=== PATIENT | female | born 1980 | race Caucasian/White ===

== ENCOUNTER 2018-07-20 05:47 | Day surgery (SDC) | payer BC ==
[2018-06-28 13:35] VITALS: BMI 28.3
[2018-06-29 10:06] LABS: #Basophils 0.1 thou/uL (0.0-0.2); #Eosinphils 0.1 thou/uL (0.0-0.7); #Lymphocytes 2.2 thou/uL (1.20-3.40); #Monocytes 0.4 thou/uL (0.11-0.59); %Eosinophils 1.9 % (0.0-10.0); %Monocytes 6.3 % (0.0-10.0); %Neutrophils 52.8 % (42.0-75.0); Hemoglobin 13.1 g/dL (12.0-16.0); Mean Corpuscular HGB CONC 34.3 g/dL (32.0-36.0); Mean Corpuscular Hemoglobin 28.3 pg (27.0-31.0); Mean Corpuscular Volume 82.4 fL (78.0-98.0); Mean Platelet Volume 6.9 fL (7.4-10.4); Platelet Count 187 thou/uL (130-400); RBC Distribution Width 11.8 % (11.5-14.5); Red Blood Cell (RBC) Count 4.61 mill/uL (4.20-5.40); White Blood Cell (WBC) Count 5.7 thou/uL (4.8-10.8)
[2018-06-29 10:57] LABS: Bilirubin Negative (Negative); Blood, Urine Negative (Negative); Clarity CLEAR (Clear); Glucose, Urine (Dipstick) Negative (Negative); Leukocyte Small (Negative); Nitrite Negative (Negative); Protein, Urine (Dipstick) Negative (Neg-Trace); Specific Gravity, Urine 1.008 (1.002-1.036); Urobilinogen 0.2 mg/dL (0.2-1.0); pH, Urine 6.5 (5.0-9.0)
[2018-06-29 11:00] LABS: Bacteria/HPF Rare-Few HPF (None Seen); Hyaline Casts/LPF 0-3 HYALINE CAST LPF (0-3 Hyaline); Pathc Cast-AUWi Flag 0.58 (0-2.49)
[~2018-07-20 05:47] MED LIST: CEFAZOLIN/Water 2 GM/20 ML SYRINGE ONE; Midazolam HCl 2 mg/2 ml Vial ONE
[2018-07-20] MEDS ORDERED: CEFAZOLIN/Water 2 GM/20 ML SYRINGE ONE (06:13)
[2018-07-20] MEDS ORDERED: Fentanyl 100 MCG/2 ML VIAL ONE (06:25)
[2018-07-20] MEDS ORDERED: Betamet Acet/Betamet Na Ph 30 MG/5 ML VIAL ONE (06:26)
[2018-07-20] MEDS ORDERED: Bupivacaine PF 0.5% 30 ML VIAL ONE (06:26)
[2018-07-20] MEDS ORDERED: Bacitracin Zinc Ointment 30 gm TUBE ONE (06:27)
[2018-07-20 06:48] LABS: #Eosinphils 0.1 thou/uL (0.0-0.7); #Lymphocytes 2.5 thou/uL (1.20-3.40); #Monocytes 0.4 thou/uL (0.11-0.59); #Neutrophils 2.5 thou/uL (1.40-6.50); %Basophils 0.7 % (0.0-1.0); %Eosinophils 2.6 % (0.0-10.0); %Lymphocytes 45.5 % (21.0-51.0); %Monocytes 6.3 % (0.0-10.0); %Neutrophils 44.9 % (42.0-75.0); Mean Corpuscular HGB CONC 32.3 g/dL (32.0-36.0); Mean Corpuscular Hemoglobin 27.5 pg (27.0-31.0); Mean Platelet Volume 7.6 fL (7.4-10.4); Platelet Count 211 thou/uL (130-400); Red Blood Cell (RBC) Count 4.74 mill/uL (4.20-5.40); White Blood Cell (WBC) Count 5.6 thou/uL (4.8-10.8)
[2018-07-20 07:40] LABS: Bilirubin Negative (Negative); Blood, Urine Negative (Negative); Clarity CLEAR (Clear); Glucose, Urine (Dipstick) Negative (Negative); Leukocyte Negative (Negative); Nitrite Negative (Negative); Protein, Urine (Dipstick) Negative (Neg-Trace); Specific Gravity, Urine 1.026 (1.002-1.036); Urobilinogen 0.2 mg/dL (0.2-1.0)
[2018-07-20 07:43] LABS: Bacteria/HPF None Seen HPF (None Seen); Hyaline Casts/LPF 7-10 HYALINE CAST LPF (0-3 Hyaline); Pathc Cast-AUWi Flag 2.18 (0-2.49); RBC/HPF 0-3 HPF (0-3)
[2018-07-20] MEDS ORDERED: Ketorolac Tromethamine 30 MG/ML VIAL ONE (08:23)
--- NOTE | 2018-07-20 08:32 | OP ---
DATE OF PROCEDURE: 07/20/2018 PREOPERATIVE DIAGNOSIS: Right wrist palmar ganglion. POSTOPERATIVE DIAGNOSIS: Right wrist palmar ganglion, compression over the median nerve. PROCEDURE PERFORMED: 1. Median nerve neuroplasty. 2. Ganglion cyst excision with arthrotomy. SURGEON: Dr. Leon Huff COMPLICATIONS: None. ESTIMATED BLOOD LOSS: 10 mL. TOURNIQUET TIME: 21 minutes. INDICATIONS: Palmar mass with marked pain, mass multiloculated and straddled by the flexor carpi rad ialis tendon. DESCRIPTION OF PROCEDURE: After successful general endotracheal anesthesia by [facility], t he limb was prepped and draped. Timeout was done appropriately. Zigzag incision outlined, extended over the mass. I gave 10 of Marcaine initially before the incision was made, and 10 mL 0.5% Marcaine was given after the incision was closed. Carried incision through skin and subcutaneous tissue medi ally, saw the palmar cutaneous mass in the median nerve and the ulnar edge of the mass lied between t hese x2. Performed neuroplasty of bone preserving both with the palmar cutaneous branch being alread y dilated and stretched from the mass. Once we these two, we then dissected it free from t he flexor carpi radialis tendon, lifted up the tendon and an interval between the tendon and dissecte d free radial artery and branches, followed the stalk down to the radioscaphoid joint. Here, we made a 6 mm incision over the radioscaphoid joint, removed the stalk which was multiloculated as well and lifted the mass out in total. We placed 3 mL of Celestone in the wound, deflated the tourniquet and held pressure for 3 minutes. I then performed a small amount of electrocautery and had excellent hemostasis. We then closed the in cision with simple 4-0 nylon in a mattress pattern 1 layer closure, injected another 10 mL 0.5% Franca ine, placed a bulky dressing and then a palmar splint. The patient left the operating room without e vidence of anesthetic or operative complication.
== END 2018-07-20 09:43 | disposition home or self-care (01) ==
LOC: SDC 05:47
PROVIDERS: ATTEND Orthopaedic Surgery Hand Surgery
PROC: 0LB50ZZ Excision of Right Lower Arm and Wrist Tendon, Open Approach (ICD-10-PCS; principal; 2018-07-20)
DX: M67.431 Ganglion, right wrist (principal)
CPT/HCPCS: 81001; 85025; 88304; 96372; J0131; J0702; J1885; J2250; J3010; S0020

== ENCOUNTER 2019-06-28 10:46 | Day surgery (SDC) | payer OTHER ==
[2019-06-27 09:25] VITALS: BMI 28.3
[~2019-06-28 10:46] MED LIST changes: -CEFAZOLIN/Water 2 GM/20 ML SYRINGE ONE; +Dexamethasone 20 MG/5 ML VIAL ONE; +Glycopyrrolate 0.2 MG/ML 5 ML SYRINGE ONE; +Lidocaine 2% PF 5 ML VIAL ONE; -Midazolam HCl 2 mg/2 ml Vial ONE; +Ondansetron PF 4 MG/2 ML Vial ONE; +PHENYLEPHRINE-NS 100 MCG/ML 10 ML SYRINGE ONE; +PROPOFOL 200 MG/20 ML VIAL ONE; +Rocuronium Bromide 10 MG/ML (10ML VIAL) ONE; +diphenhydrAMINE 50 MG/ML VIAL ONE; +ePHEDrine 50 MG/ML VIAL ONE
[2019-06-28] MEDS ORDERED: Heparin 5,000 UNITS/ML VIAL ONE (11:06)
[2019-06-28 11:59] LABS: BHCG - Serum Negative (NEGATIVE); Pregs Control Background? CLEAR/WHITE (CLR/WHITE); Pregs Control Bar Appear? YES (CONTROL BAR)
[2019-06-28] MEDS ORDERED: Fentanyl 100 MCG/2 ML VIAL ONE ×3 (12:04→19:25)
[2019-06-28] MEDS ORDERED: Midazolam HCl 2 mg/2 ml Vial ONE ×2 (12:06→14:06)
[2019-06-28] MEDS ORDERED: SUGAMMADEX SODIUM 200 MG/2 ML VIAL ONE (12:09)
[2019-06-28] MEDS ORDERED: Gentamicin 80 MG/2 ML VIAL ONE ×3 (12:27→18:40)
[2019-06-28] MEDS ORDERED: Sodium Chloride 0.9% 20 ML ONE (12:27)
[2019-06-28] MEDS ORDERED: EPINEPHrine 1 MG/ML AMP ONE ×2 (12:27→12:36)
[2019-06-28] MEDS ORDERED: Dexamethasone 20 MG/5 ML VIAL ONE (12:27)
[2019-06-28] MEDS ORDERED: Bupivacaine/Epinephrine 0.25% 30 ML VIAL ONE (12:27)
[2019-06-28] MEDS ORDERED: Lidocaine 1% (PF) 30 ML VIAL ONE (12:27)
[2019-06-28] MEDS ORDERED: HYDROcodone/Acetaminophen 5/325 mg Tablet ONE (19:44)
--- NOTE | 2019-07-02 09:27 | OP ---
DATE OF PROCEDURE: 06/28/2019 PREOPERATIVE DIAGNOSIS: Lipodystrophy of the back. POSTOPERATIVE DIAGNOSIS: Lipodystrophy of the back. PROCEDURE PERFORMED: Back liposuction. DESCRIPTION OF PROCEDURE: Following induction of adequate anesthesia, the patient was prepped and draped in the usual sterile fashion in the supine position. This followed an awake prep where she was circumferentially prepped. After she was asleep, the patient was placed in the lateral position for each side where the liposuction was performed. Through the stab incisions, approximately 700 mL of fluid were infiltrated in each subcutaneous back as it had been topographically marked preoperatively. After this had had adequate time to take effect, a combination of VASER and SAFE liposuction were performed. Ultrasonic energy was used to break up the fat as was a mechanical basket. Traditional liposuction then followed to an end point of an appropriate skin pinch thickness test with good symmetry. Similar procedure was done on each side. Approximately 700 mL were infiltrated in the each tristin-back and approximately 400 mL were aspirated from each side. The incisions were left open to drain. OPERATIVE FINDINGS: Liposuction began at 1335 hours. It ended at 1440 hours. Job ID: [id number]
--- NOTE | 2019-07-02 10:15 | OP ---
DATE OF PROCEDURE: 06/28/2019 PREOPERATIVE DIAGNOSIS: Macromastia. POSTOPERATIVE DIAGNOSIS: Macromastia. PROCEDURE PERFORMED: Bilateral breast reduction. OPERATIVE FINDINGS: Right breast resection 350 g, left breast resection 400 g. Breast reduction began at 1440 hours. It ended at 1600 hours. DESCRIPTION OF PROCEDURE: Following induction of adequate anesthesia, the patient was prepped and draped in the usual sterile fashion in the supine position. Modified west pattern incisions were made. The nipple was incised around a 42 mm nipple sizer. The skin over the inferior pole of the breast was de- epithelialized. Skin flaps were then raised superiorly, medially, and laterally. Dermoglandular units were resected superiorly, medially, and laterally, taking care to sculpt the central pedicle with good viability and good sensibility. The field was copiously irrigated and inspected for meticulous hemostasis prior to closure of the inverted-T 3-0 PDS suture and 3-0 Monocryl suture. The nipple was brought out through a 42 mm nipple defect and similarly inset. Each side was done in similar fashion. The patient tolerated the procedure well. Job ID: [id number] [facility]
== END 2019-06-28 21:00 | disposition home or self-care (01) ==
LOC: SDC 10:46
PROVIDERS: ATTEND Plastic Surgery
PROC: 0H0V0ZZ Alteration of Bilateral Breast, Open Approach (ICD-10-PCS; principal; 2019-06-28)
PROC: 0J073ZZ Alteration of Back Subcutaneous Tissue and Fascia, Percutaneous Approach (ICD-10-PCS; principal; 2019-06-28)
DX: N62 Hypertrophy of breast (principal); E88.1 Lipodystrophy, not elsewhere classified; Z79.899 Other long term (current) drug therapy
CPT/HCPCS: 84703; 88305; J0131; J0171; J0690; J1100; J1200; J1580; J1644; J2001; J2250; J2405; J2704; J3010; J3370; J3490